=== PATIENT | female | born 1995 | race Two or more races ===

== ENCOUNTER 2021-11-19 20:10 | Emergency (ER) | payer BC ==
[~2021-11-19] VITALS: Ht 154.9 cm; Wt 66.0 kg
[2021-11-19 21:50] VITALS: BP 115/61
== END 2021-11-19 21:52 | disposition home or self-care (01) ==
LOC: ER 20:10
DX: M79.602 Pain in left arm (principal); R20.0 Anesthesia of skin
CPT/HCPCS: 29125; 71045; 73030; 93005; 99284; A4565

== ENCOUNTER → 2021-12-27 | Outpatient (CLI) | payer BC ==
[2021-12-27 08:56] LABS: BASOPHILS % 0.5 % (0.0-2.0); EOSINOPHILS % 2.1 % (0.0-5.0); HEMATOCRIT. 39.4 % (36.0-48.0); HEMOGLOBIN. 13.4 g/dL (12.0-16.0); LYMPHOCYTES % 30.2 % (20.0-50.0); MEAN CORPUSCULAR HEMOGLOBIN 29.6 pg (28.0-32.0); MEAN CORPUSCULAR VOLUME 87.1 fL (81.0-99.0); MEAN PLATELET VOLUME 9.2 fl (7.4-10.4); NEUTROPHILS % 61.2 % (40.0-76.0); PLATELET 207 x1000/uL (130-400); RED BLOOD CELL COUNT 4.52 mill/uL (4.2-5.4); RED CELL DISTRIBUTION WIDTH 13.2 % (11.6-14.6)
[2021-12-27 09:03] LABS: CHLORIDE 106 mEq/L (98-107)
[2021-12-27 09:23] LABS: HDL CHOLESTEROL 71 mg/dL (40-59); LDL CHOLESTEROL 97 mg/dL (5-100)
[2021-12-28 06:11] LABS: PROLACTIN 26.6 ng/mL (4.8-23.3)
== END | disposition home or self-care (01) ==
LOC: LAB 08:11
PROVIDERS: ATTEND Obstetrics & Gynecology Obstetrics
DX: Z13.220 Encounter for screening for lipoid disorders (principal); Z13.228 Encounter for screening for other metabolic disorders; Z13.29 Encounter for screening for other suspected endocrine disorder; Z13.1 Encounter for screening for diabetes mellitus; Z13.0 Encounter for screening for diseases of the blood and blood-forming organs and certain disorders involving the immune mechanism
CPT/HCPCS: 36415; 80053; 80061; 83036; 84146; 84403; 84443; 85025

== ENCOUNTER → 2022-01-24 | Outpatient (CLI) | payer BC ==
[2022-01-24 09:17] LABS: CHLORIDE 102 mEq/L (98-107)
[2022-01-24 09:22] LABS: CLARITY URINE CLEAR (CLEAR); COLOR URINE YELLOW (YELLOW); KETONES URINE NEGATIVE (NEGATIVE); LEUKOCYTE ESTERASE URINE NEGATIVE (NEGATIVE); NITRITE URINE NEGATIVE (NEGATIVE); OCCULT BLOOD URINE NEGATIVE (NEGATIVE); PH URINE 6.5 (4.5-8.0); PROTEIN URINE NEGATIVE (NEGATIVE); SPECIFIC GRAVITY URINE 1.015 (1.005-1.030); UROBILINOGEN URINE 0.2 E.U./dL (0.2-1.0)
[2022-01-24 09:30] LABS: HDL CHOLESTEROL 78 mg/dL (40-59); LDL CHOLESTEROL 89 mg/dL (5-100); TOTAL IRON BINDING CAPACITY 347 ug/dL (250-450)
[2022-01-24 09:46] LABS: BASOPHILS % 0.4 % (0.0-2.0); EOSINOPHILS % 2.8 % (0.0-5.0); HEMATOCRIT. 38.4 % (36.0-48.0); LYMPHOCYTES % 36.5 % (20.0-50.0); MEAN CORPUSCULAR HEMOGLOBIN 29.2 pg (28.0-32.0); MEAN CORPUSCULAR VOLUME 86.5 fL (81.0-99.0); MEAN PLATELET VOLUME 9.9 fl (7.4-10.4); MONOCYTES % 6.2 % (2.0-8.0); NEUTROPHILS % 54.1 % (40.0-76.0); PLATELET 177 x1000/uL (130-400); RED BLOOD CELL COUNT 4.44 mill/uL (4.2-5.4); RED CELL DISTRIBUTION WIDTH 13.3 % (11.6-14.6)
[2022-01-24 11:17] LABS: VITAMIN B12 SERUM 258 pg/mL (211-911)
[2022-01-25 09:06] LABS: ANTI-DNA DOUBLE STRANDED QUANT 3 IU/mL (0-9); ANTI-NUCLEAR ANTIBODIES DIRECT Negative (Negative); ANTI-SCLERODERMA-70 AB <0.2 AI (0.0-0.9); HAV IGM ANTIBODY Negative (Negative); HBSAG SCREEN Negative (Negative); HEPATITIS B CORE IGM AB Negative (Negative); RNP ANTIBODY 0.5 AI (0.0-0.9); SJOGRENS ANTI SS-A < 0.2 AI (0.0-0.9); SJOGRENS ANTI SS-B < 0.2 AI (0.0-0.9); VITAMIN D 25-OH 36.5 ng/mL (30.0-100.0)
== END | disposition home or self-care (01) ==
LOC: LAB 08:10
PROVIDERS: ATTEND Internal Medicine Geriatric Medicine
DX: Z00.01 Encounter for general adult medical examination with abnormal findings (principal); Z11.59 Encounter for screening for other viral diseases; N39.0 Urinary tract infection, site not specified; M54.2 Cervicalgia
CPT/HCPCS: 36415; 80053; 80061; 80074; 81003; 82306; 82607; 83036; 83540; 83550; 84443; 85025; 85651; 86038; 86592

== ENCOUNTER → 2022-03-21 | Outpatient (CLI) | payer BC | END | disposition home or self-care (01) | LOC: LABT 14:12 | PROVIDERS: ATTEND Obstetrics & Gynecology Obstetrics | DX: N91.2 Amenorrhea, unspecified (principal) | CPT/HCPCS: 36415; 84702 ==

== ENCOUNTER → 2022-03-23 | Outpatient (CLI) | payer SELFPAY ==
[2022-03-23 13:54] LABS: HCG SCREEN POSITIVE
== END | disposition home or self-care (01) ==
LOC: LAB 11:53
PROVIDERS: ATTEND Obstetrics & Gynecology Obstetrics
DX: N91.2 Amenorrhea, unspecified (principal)
CPT/HCPCS: 36415; 84702; 84703

== ENCOUNTER → 2022-03-24 | Outpatient (CLI) | payer BC | END | disposition home or self-care (01) | LOC: US 09:32 | PROVIDERS: ATTEND Obstetrics & Gynecology Obstetrics | DX: Z34.81 Encounter for supervision of other normal pregnancy, first trimester (principal); N83.292 Other ovarian cyst, left side; N85.8 Other specified noninflammatory disorders of uterus; Z3A.01 Less than 8 weeks gestation of pregnancy | CPT/HCPCS: 76801 ==

== ENCOUNTER → 2022-03-25 | Outpatient (CLI) | payer BC | END | disposition home or self-care (01) | LOC: LAB 13:57 | PROVIDERS: ATTEND Obstetrics & Gynecology Obstetrics | DX: N92.1 Excessive and frequent menstruation with irregular cycle (principal) | CPT/HCPCS: 36415; 84702 ==

== ENCOUNTER → 2022-05-05 | Outpatient (CLI) | payer BC | END | disposition home or self-care (01) | LOC: RAD 12:49 | PROVIDERS: ATTEND Obstetrics & Gynecology Obstetrics | DX: O34.81 Maternal care for other abnormalities of pelvic organs, first trimester (principal); N83.12 Corpus luteum cyst of left ovary; Z3A.11 11 weeks gestation of pregnancy | CPT/HCPCS: 76830; 76856 ==

== ENCOUNTER → 2022-08-18 | Outpatient (CLI) | payer BC ==
[2022-08-18 09:03] LABS: HEMOGLOBIN 11.2 g/dL (12.0-16.0)
== END | disposition home or self-care (01) ==
LOC: LAB 08:43
PROVIDERS: ATTEND Internal Medicine Geriatric Medicine
DX: Z13.1 Encounter for screening for diabetes mellitus (principal)
CPT/HCPCS: 36415; 82947; 82950; 85014; 85018

== ENCOUNTER 2022-11-15 16:23 | Observation (INO) | payer BC ==
[~2022-11-15] VITALS: Ht 154.9 cm; Wt 86.2 kg
[2022-11-15] MEDS ORDERED: PNV1TABL76 PO (16:33)
[2022-11-15] MEDS ORDERED: UBID200C37 PO (16:33)
[2022-11-15] MEDS ORDERED: FERR325T6 PO (16:33)
[2022-11-15] MEDS ORDERED: FOLI-43 PO (16:33)
== END 2022-11-15 19:00 | disposition home or self-care (01) ==
LOC: 8 EST LDRP 16:23
PROVIDERS: ADMIT Obstetrics & Gynecology Obstetrics; ATTEND Obstetrics & Gynecology Obstetrics
DX: O42.92 Full-term premature rupture of membranes, unspecified as to length of time between rupture and onset of labor (principal); O36.8330 Maternal care for abnormalities of the fetal heart rate or rhythm, third trimester, not applicable or unspecified; Z3A.40 40 weeks gestation of pregnancy
CPT/HCPCS: 59025; 76805; 76818; G0378

== ENCOUNTER 2022-11-15 22:48 | Inpatient (IN) | payer BC ==
[~2022-11-15] VITALS: Ht 154.9 cm; Wt 86.6 kg
[~2022-11-15 22:48] MED LIST: FERR325T6 PO; FOLI-43 PO; PNV1TABL76 PO; UBID200C37 PO
[2022-11-16] MEDS: LACTATED RINGERS 1,000 ML IV SCH ×4 (00:30→20:44)
[2022-11-16] MEDS: MISOPROSTOL 100MCG TABLET VG PRN ×2 (00:52→05:49)
[2022-11-16 03:33] LABS: BASOPHILS % 0.1 % (0.0-2.0); EOSINOPHILS % 1.2 % (0.0-5.0); HEMATOCRIT. 37.5 % (36.0-48.0); LYMPHOCYTES % 17.8 % (20.0-50.0); MEAN CORPUSCULAR HEMOGLOBIN 27.3 pg (28.0-32.0); MEAN CORPUSCULAR VOLUME 85.3 fL (81.0-99.0); MEAN PLATELET VOLUME 9.4 fl (7.4-10.4); MONOCYTES % 6.8 % (2.0-8.0); NEUTROPHILS % 74.1 % (40.0-76.0); PLATELET 181 x1000/uL (130-400); RED BLOOD CELL COUNT 4.39 mill/uL (4.2-5.4); RED CELL DISTRIBUTION WIDTH 16.5 % (11.6-14.6); WHITE BLOOD COUNT 12.3 x1000/uL (4.5-11.0)
[2022-11-16 03:44] LABS: INR 0.9
[2022-11-16 04:26] LABS: HEPATITIS B SURFACE ANTIGEN NEGATIVE
[2022-11-16 04:27] LABS: CLARITY URINE CLEAR (CLEAR); COLOR URINE YELLOW (YELLOW); GLUCOSE URINE NEGATIVE (NEGATIVE); KETONES URINE NEGATIVE (NEGATIVE); LEUKOCYTE ESTERASE URINE NEGATIVE (NEGATIVE); NITRITE URINE NEGATIVE (NEGATIVE); OCCULT BLOOD URINE NEGATIVE (NEGATIVE); PROTEIN URINE TRACE (NEGATIVE); SPECIFIC GRAVITY URINE 1.018 (1.005-1.030); UROBILINOGEN URINE 0.2 E.U./dL (0.2-1.0)
[2022-11-16 04:31] LABS: BACTERIA URINE NONE SEEN; RBC URINE NONE SEEN /hpf (0-2); SQUAMOUS EPITHELIAL CELL URINE NONE SEEN /lpf (RARE/1+); WBC URINE NONE SEEN /hpf (0-2); YEAST URINE NONE SEEN
[2022-11-16 04:39] LABS: RAPID HIV SCREEN NEGATIVE (NEGATIVE)
[2022-11-16 04:39] LABS: *AMPHETAMINES SCREEN URINE NEGATIVE (NEGATIVE); *BARBITURATES SCREEN URINE NEGATIVE (NEGATIVE); *BENZODIAZEPINES SCREEN URINE NEGATIVE (NEGATIVE); *COCAINE SCREEN URINE NEGATIVE (NEGATIVE); CANNABINOID URINE SCREEN NEGATIVE (NEGATIVE); ECSTASY MDMA SCREEN URINE NEGATIVE (NEGATIVE); METHADONE URINE SCREEN NEGATIVE (NEGATIVE); OPIATES URINE SCREEN NEGATIVE (NEGATIVE); PHENCYCLIDINE URINE SCREEN NEGATIVE (NEGATIVE)
[2022-11-16] MEDS ORDERED: FENTANYL CITRATE/PF 50MCG/ML 2ML VIAL ONE (16:03)
[2022-11-16] MEDS ORDERED: ROPIVACAINE HCL/PF EPIDURAL 200 ML EPI ONE (16:05)
[2022-11-16] MEDS ORDERED: ROPIVACAINE HCL/PF EPIDURAL 200 ML EPI SCH (18:30)
[2022-11-17] MEDS: LACTATED RINGERS 1,000 ML IV SCH ×3 (04:17→21:21)
[2022-11-17] MEDS ORDERED: OXYTOCIN 30 UNITS/500ML NS PMX 500 ML IV PRN (04:45)
[2022-11-17] MEDS ORDERED: LIDOCAINE HCL 1% 20ML VIAL (Pyxis) INJ INFIL SCH (09:15)
[2022-11-17] MEDS ORDERED: MINERAL OIL 30ML BOTTLE PO SCH (09:15)
[2022-11-17] MEDS ORDERED: ROPIVACAINE HCL/PF EPIDURAL 200 ML EPI ONE (09:38)
[2022-11-17] MEDS ORDERED: ONDANSETRON HCL 4MG/2ML INJ IV NR (19:00)
[2022-11-18] MEDS ORDERED: ROPIVACAINE HCL/PF EPIDURAL 200 ML EPI ONE (00:33)
[2022-11-18] MEDS ORDERED: GENTAMICIN 80MG PREMIX 100 ML IV NR (05:45)
[2022-11-18] MEDS ORDERED: AMPICILLIN 2,000 MG in SODIUM CHLORIDE 0.9% 100 ML IV SCH (06:30)
[2022-11-18] MEDS: ACETAMINOPHEN 500MG TABLET PO SCH (06:34)
[2022-11-18 06:37] LABS: BASOPHILS % 0.1 % (0.0-2.0); DIFFERENTIAL COMMENT 0; EOSINOPHILS % 0.3 % (0.0-5.0); HEMATOCRIT. 43.6 % (36.0-48.0); HEMOGLOBIN. 13.1 g/dL (12.0-16.0); LYMPHOCYTES % 7.4 % (20.0-50.0); MEAN CORPUSCULAR HEMOGLOBIN 27.6 pg (28.0-32.0); MEAN CORPUSCULAR HGB CONC 30.2 g/dL (31.0-37.0); MEAN CORPUSCULAR VOLUME 91.5 fL (81.0-99.0); MEAN PLATELET VOLUME 9.5 fl (7.4-10.4); MONOCYTES % 5.4 % (2.0-8.0); NEUTROPHILS % 86.8 % (40.0-76.0); PLATELET 119 x1000/uL (130-400); RED BLOOD CELL COUNT 4.76 mill/uL (4.2-5.4); RED CELL DISTRIBUTION WIDTH 16.9 % (11.6-14.6); WHITE BLOOD COUNT 17.9 x1000/uL (4.5-11.0)
[2022-11-18] MEDS ORDERED: LIDOCAINE 2%/EPINEPHRINE 1:200,000 20 ML VIAL INJ ONE (07:00)
[2022-11-18] MEDS ORDERED: SODIUM BICARBONATE 8.4% MEQ/ML 50ML VIAL IV ONE (07:12)
[2022-11-18] MEDS ORDERED: OXYTOCIN 10 UNITS/ML 1ML ONE (07:12)
[2022-11-18] MEDS ORDERED: IBUPROFEN 400MG TABLET PO PRN (07:15)
[2022-11-18] MEDS ORDERED: CEFAZOLIN SODIUM 1000MG/VIAL ONE (07:15)
[2022-11-18] MEDS ORDERED: DEXT 5%/LACTATED RINGERS 1,000 ML IV SCH (07:15)
[2022-11-18] MEDS ORDERED: DEXAMETHASONE 4MG/ML 1ML VIAL ONE (07:15)
[2022-11-18] MEDS ORDERED: ONDANSETRON HCL 4MG/2ML INJ ONE (07:15)
[2022-11-18] MEDS ORDERED: EPHEDRINE SULFATE 50MG/ML VIAL ONE (07:44)
[2022-11-18] MEDS ORDERED: MORPHINE SULFATE/PF 1MG/ML 10ML AMP ONE (07:45)
[2022-11-18 08:14] LABS: CLARITY URINE CLOUDY (CLEAR); COLOR URINE DARK YELLOW (YELLOW); GLUCOSE URINE NEGATIVE (NEGATIVE); KETONES URINE 4+ (NEGATIVE); LEUKOCYTE ESTERASE URINE 1+ (NEGATIVE); NITRITE URINE NEGATIVE (NEGATIVE); OCCULT BLOOD URINE 3+ (NEGATIVE); PH URINE 6.5 (4.5-8.0); PROTEIN URINE 3+ (NEGATIVE); SPECIFIC GRAVITY URINE 1.023 (1.005-1.030)
[2022-11-18] MEDS ORDERED: TRANEXAMIC ACID 10 ML ONE (08:17)
[2022-11-18] MEDS ORDERED: NALOXONE HCL 0.4 MG/ML 1ML VIAL IV PRN (08:45)
[2022-11-18] MEDS ORDERED: KETOROLAC 30MG/ML VIAL IV PRN (08:45)
[2022-11-18] MEDS ORDERED: MORPHINE SULFATE 2 MG/ML CPJ (NOT FOR IM USE) IV PRN (08:45)
[2022-11-18] MEDS ORDERED: FENTANYL CITRATE/PF 50MCG/ML 2ML VIAL IV PRN (08:45)
[2022-11-18 09:07] LABS: MUCUS URINE 2+ /lpf (< = 2+); SQUAMOUS EPITHELIAL CELL URINE 1+ /lpf (RARE/1+)
[2022-11-18 09:08] LABS: BACTERIA URINE 2+; RBC URINE TNTC /hpf (0-2); YEAST URINE NONE SEEN
[2022-11-18] MEDS ORDERED: OXYTOCIN 30 UNITS/500ML NS PMX 500 ML IV SCH (11:45)
[2022-11-18 14:00] VITALS: BP 90/42; PULSE 57; RESP 18; TEMP 97.6; O2SAT 96
[2022-11-18 16:20] VITALS: BP 94/46; PULSE 62; RESP 18; TEMP 97.7
[2022-11-18] MEDS: CEFAZOLIN 2,000 MG in DEXT 5% WATER 100 ML IV SCH (16:46)
[2022-11-18] MEDS: GENTAMICIN 80MG PREMIX 100 ML IV SCH (18:40)
[2022-11-18 20:00] VITALS: BP 105/59; PULSE 95; RESP 18; TEMP 98.5; O2SAT 96
[2022-11-18] MEDS: DOCUSATE SODIUM 100MG CAPSULE PO SCH (21:09)
[2022-11-19 00:30] VITALS: BP 98/50; PULSE 113; RESP 18; TEMP 99.9
[2022-11-19] MEDS: CEFAZOLIN 2,000 MG in DEXT 5% WATER 100 ML IV SCH (00:36)
[2022-11-19] MEDS: ACETAMINOPHEN 500MG TABLET PO SCH ×3 (01:34→18:42)
[2022-11-19] MEDS: GENTAMICIN 80MG PREMIX 100 ML IV SCH (02:47)
[2022-11-19] MEDS: LACTATED RINGERS 1,000 ML IV SCH (02:49)
[2022-11-19 04:15] VITALS: BP 96/51; PULSE 103; RESP 18; TEMP 99.4
[2022-11-19 06:26] LABS: HEMATOCRIT. 29.4 % (36.0-48.0); MEAN CORPUSCULAR HEMOGLOBIN 28.5 pg (28.0-32.0); MEAN CORPUSCULAR HGB CONC 34.1 g/dL (31.0-37.0); MEAN CORPUSCULAR VOLUME 83.5 fL (81.0-99.0); PLATELET 134 x1000/uL (130-400); RED BLOOD CELL COUNT 3.52 mill/uL (4.2-5.4); RED CELL DISTRIBUTION WIDTH 16.2 % (11.6-14.6); WHITE BLOOD COUNT 13.3 x1000/uL (4.5-11.0)
[2022-11-19 07:10] LABS: DIFFERENTIAL COMMENT 1
[2022-11-19 08:00] VITALS: BP 92/50; PULSE 64; RESP 18; TEMP 98.6; O2SAT 97
[2022-11-19] MEDS ORDERED: AZITHROMYCIN 500 MG TABLET PO NR (09:00)
[2022-11-19 16:00] VITALS: BP 105/62; PULSE 101; RESP 18; TEMP 98.3
[2022-11-19 19:55] VITALS: BP 113/61; PULSE 98; RESP 18; TEMP 99.6; O2SAT 98
[2022-11-19] MEDS: DOCUSATE SODIUM 100MG CAPSULE PO SCH (21:00)
[2022-11-19] MEDS: IBUPROFEN 800MG TABLET PO PRN (22:25)
[2022-11-20 04:30] VITALS: BP 100/55; PULSE 95; RESP 18; TEMP 98.4
[2022-11-20 08:30] VITALS: BP 106/62; RESP 18; TEMP 99.1; O2SAT 99
[2022-11-20] MEDS: IBUPROFEN 800MG TABLET PO PRN ×2 (08:43→18:54)
[2022-11-20] MEDS: AZITHROMYCIN 250 MG TABLET PO SCH (08:43)
[2022-11-20 08:56] LABS: ANISOCYTOSIS 1+; PLATELET ESTIMATE NORMAL
[2022-11-20] MEDS ORDERED: ACETAMINOPHEN 500MG TABLET PO PRN (10:45)
[2022-11-20 12:30] VITALS: BP_SYST 113; BP_DIAS 0; BP_DIAS 60; RESP 18; TEMP 98.5
[2022-11-20] MEDS: SIMETHICONE 80MG TABLET CHEW PO SCH ×2 (14:10→18:38)
[2022-11-20 15:14] VITALS: BP_SYST 124; BP_SYST 24; BP_DIAS 51; RESP 18; TEMP 98.3
[2022-11-20 19:00] VITALS: BP 125/65; PULSE 65; RESP 18; TEMP 99.1; O2SAT 100
[2022-11-21 00:01] VITALS: BP 108/60; PULSE 78; RESP 18; TEMP 98.6
[2022-11-21] MEDS: SIMETHICONE 80MG TABLET CHEW PO SCH ×2 (00:15→08:06)
[2022-11-21 05:15] VITALS: BP 131/52; PULSE 54; RESP 18; TEMP 98.9
[2022-11-21 07:17] VITALS: O2SAT 99
[2022-11-21 07:21] VITALS: BP 112/65; PULSE 71; RESP 18; TEMP 99.5
[2022-11-21 08:07] VITALS: BP 112/65; PULSE 71; RESP 18
[2022-11-21] MEDS: IBUPROFEN 800MG TABLET PO PRN (08:07)
[2022-11-21] MEDS: AZITHROMYCIN 250 MG TABLET PO SCH (08:07)
== END 2022-11-21 11:45 | disposition home or self-care (01) | DRG 786 ==
LOC: 8 EST LDRP 22:48 → OBSVTOIN 22:48 → 8 EST LDRP 11-16 08:42 → 8EST 11-18 12:15
PROVIDERS: ADMIT Obstetrics & Gynecology Obstetrics; ATTEND Obstetrics & Gynecology Obstetrics
PROC: 10D00Z1 Extraction of Products of Conception, Low, Open Approach (ICD-10-PCS; principal; 2022-11-18)
DX: O48.0 Post-term pregnancy (principal); O41.1030 Infection of amniotic sac and membranes, unspecified, third trimester, not applicable or unspecified; O41.03X0 Oligohydramnios, third trimester, not applicable or unspecified; O77.0 Labor and delivery complicated by meconium in amniotic fluid; O33.9 Maternal care for disproportion, unspecified; O62.2 Other uterine inertia; Z37.0 Single live birth; Z3A.40 40 weeks gestation of pregnancy
CPT/HCPCS: 36415; 80305; 81003; 85025; 86592; 86703; 86762; 86850; 86900; 86920; 87015; 87045; 87340; 87427; 87449; 88307; 99281; G0378; J0290; J0690; J1100; J1580; J1885; J2274; J2405; J2795; J3010; J3490; J7050; J7060; J7120; J7121; J2590

== ENCOUNTER → 2023-08-07 | Outpatient (CLI) | payer BC ==
[~2023-08-07] MED LIST changes: -UBID200C37 PO
[2023-08-07 07:56] LABS: CHLORIDE 106 mEq/L (98-107); POTASSIUM 4.4 mEq/L (3.5-5.1); SODIUM 137 mEq/L (136-145)
[2023-08-07 07:57] LABS: CALCIUM 9.9 mg/dL (8.7-10.4); CARBON DIOXIDE 26 mEq/L (21-32)
[2023-08-07 08:02] LABS: CREATININE 0.8 mg/dL (0.6-1.0); GLUCOSE 90 mg/dL (70-105); TRIGLYCERIDE 52 mg/dL (0-150); UREA NITROGEN BLOOD 15 mg/dL (9-23)
[2023-08-07 08:03] LABS: LDL CHOLESTEROL 116 mg/dL (5-100)
[2023-08-07 08:04] LABS: ALANINE AMINOTRANSFERASE 10 IU/L (10-49); ALBUMIN 4.7 g/dL (3.2-4.8); ASPARTATE AMINOTRANSFERASE 19 IU/L (<34); BASOPHILS % 0.3 % (0.0-2.0); BILIRUBIN TOTAL 0.8 mg/dL (0.1-1.0); CHOLESTEROL 171 mg/dL (<200); EOSINOPHILS % 2.3 % (0.0-5.0); HDL CHOLESTEROL 57 mg/dL (>65); HEMATOCRIT. 40.2 % (36.0-48.0); HEMOGLOBIN. 13.4 g/dL (12.0-16.0); LYMPHOCYTES % 35.8 % (20.0-50.0); MEAN CORPUSCULAR HEMOGLOBIN 28.7 pg (28.0-32.0); MEAN CORPUSCULAR HGB CONC 33.4 g/dL (31.0-37.0); MEAN CORPUSCULAR VOLUME 85.7 fL (81.0-99.0); MEAN PLATELET VOLUME 9.2 fl (7.4-10.4); MONOCYTES % 6.2 % (2.0-8.0); NEUTROPHILS % 55.4 % (40.0-76.0); PLATELET 179 x1000/uL (130-400); PROTEIN TOTAL 7.7 g/dL (6.0-8.3); RED BLOOD CELL COUNT 4.69 mill/uL (4.2-5.4); RED CELL DISTRIBUTION WIDTH 13.2 % (11.6-14.6); WHITE BLOOD COUNT 5.9 x1000/uL (4.5-11.0)
[2023-08-07 08:12] LABS: VITAMIN B12 SERUM 360 pg/mL (211-911)
[2023-08-07 12:34] LABS: ERYTHROCYTE SEDIMENTATION RATE 15 mm/hr (0-20)
== END | disposition home or self-care (01) ==
LOC: LAB 07:16
PROVIDERS: ATTEND Internal Medicine Geriatric Medicine
DX: Z00.00 Encounter for general adult medical examination without abnormal findings (principal); Z13.1 Encounter for screening for diabetes mellitus; Z13.220 Encounter for screening for lipoid disorders; Z13.0 Encounter for screening for diseases of the blood and blood-forming organs and certain disorders involving the immune mechanism; Z13.29 Encounter for screening for other suspected endocrine disorder
CPT/HCPCS: 36415; 80053; 80061; 82306; 82607; 83036; 85025; 85651

== ENCOUNTER → 2023-10-03 | Outpatient (CLI) | payer BC ==
[2023-10-03 08:47] LABS: HCG SCREEN NEGATIVE
== END | disposition home or self-care (01) ==
LOC: LAB 07:18
PROVIDERS: ATTEND Internal Medicine Geriatric Medicine
DX: Z13.29 Encounter for screening for other suspected endocrine disorder (principal)
CPT/HCPCS: 36415; 83036; 84146; 84443; 84703; 85379

== ENCOUNTER → 2024-02-01 | Outpatient (CLI) | payer BC ==
[2024-02-01 10:21] LABS: BASOPHILS % 0.4 % (0.0-2.0); EOSINOPHILS % 1.6 % (0.0-5.0); HEMATOCRIT. 40.6 % (36.0-48.0); HEMOGLOBIN. 13.6 g/dL (12.0-16.0); LYMPHOCYTES % 36.4 % (20.0-50.0); MEAN CORPUSCULAR HEMOGLOBIN 29.5 pg (28.0-32.0); MEAN CORPUSCULAR HGB CONC 33.6 g/dL (31.0-37.0); MEAN CORPUSCULAR VOLUME 87.8 fL (81.0-99.0); MEAN PLATELET VOLUME 9.6 fl (7.4-10.4); MONOCYTES % 5.9 % (2.0-8.0); NEUTROPHILS % 55.7 % (40.0-76.0); PLATELET 208 x1000/uL (130-400); RED BLOOD CELL COUNT 4.62 mill/uL (4.2-5.4); RED CELL DISTRIBUTION WIDTH 13.5 % (11.6-14.6); WHITE BLOOD COUNT 5.7 x1000/uL (4.5-11.0)
[2024-02-01 10:29] LABS: CHLORIDE 106 mEq/L (98-107); POTASSIUM 4.5 mEq/L (3.5-5.1); SODIUM 136 mEq/L (136-145)
[2024-02-01 10:30] LABS: CALCIUM 9.5 mg/dL (8.7-10.4); CARBON DIOXIDE 25 mEq/L (21-32)
[2024-02-01 10:35] LABS: CREATININE 0.9 mg/dL (0.6-1.0); GLUCOSE 90 mg/dL (70-105); UREA NITROGEN BLOOD 14 mg/dL (9-23)
[2024-02-01 10:37] LABS: ALANINE AMINOTRANSFERASE 11 IU/L (10-49); ALBUMIN 4.4 g/dL (3.2-4.8); AMYLASE 51 IU/L (30-118); ASPARTATE AMINOTRANSFERASE 17 IU/L (<34)
[2024-02-01 10:38] LABS: BILIRUBIN TOTAL 0.8 mg/dL (0.1-1.0); PROTEIN TOTAL 7.7 g/dL (6.0-8.3)
[2024-02-01 10:39] LABS: THYROID STIMULATING HORMONE 2.34 uIU/mL (0.55-4.78)
== END | disposition home or self-care (01) ==
LOC: US 09:43
PROVIDERS: ATTEND Internal Medicine Critical Care Medicine
DX: R68.84 Jaw pain (principal)
CPT/HCPCS: 36415; 76536; 80053; 82150; 84436; 84443; 85025